=== PATIENT | female | born 1990 | race Caucasian/White ===

== ENCOUNTER 2023-01-04 18:26 | Emergency (ER) | payer MEDICAID, OTHER ==
[~2023-01-04] VITALS: Ht 160 cm; Wt 53.5 kg
--- NOTE | 2023-01-04 19:45 | NUR ---
BIBS INFECTED CYST/CELLULITIS, LEFT INFRA-ORBITAL AREA
--- NOTE | 2023-01-04 20:04 | NUR ---
IV STARTED 18G L AC
[2023-01-04 20:12] LABS: BASOPHILS % (AUTO) 0.3 % (0.0-2.0); EOSINOPHILS % (AUTO) 1.8 % (0.0-6.0); HEMATOCRIT 42 % (33-45); HEMOGLOBIN 13.8 g/dL (11.5-14.8); LYMPHOCYTES # (AUTO) 0.8 K/uL (0.8-4.8); LYMPHOCYTES % (AUTO) 9.3 % (20.0-44.0); MEAN CORPUSCULAR HGB CONC 33 g/dl (31.0-36.0); MEAN CORPUSCULAR VOLUME 92 fL (82-100); MONOCYTES # (AUTO) 0.6 K/uL (0.1-1.30); MONOCYTES % (AUTO) 7.2 % (2.0-12.0); NEUTROPHILS # (AUTO) 7.2 K/uL (1.8-8.9); NEUTROPHILS % (AUTO) 81.4 % (43.0-81.0); PLATELET COUNT (AUTO) 245 K/uL (150-450); RED BLOOD CELL COUNT(AUTO) 4.51 MIL/uL (4.0-5.2); WHITE BLOOD COUNT (AUTO) 8.9 K/uL (4.3-11.0)
[2023-01-04] MEDS ORDERED: IOHEXOL-300 100 ML VIAL IV ONE (20:17)
[2023-01-04] MEDS ORDERED: IV NS 0.9% 250 ML IV ONE (20:17)
--- NOTE | 2023-01-04 20:25 | NUR ---
PT TAKEN TO CT
[2023-01-04 20:27] LABS: CALCIUM, SERUM 9.4 mg/dL (8.5-10.1); CREATININE 0.8 mg/dL (0.6-1.3); POTASSIUM 4.2 mmol/L (3.5-5.1)
--- NOTE | 2023-01-04 20:35 | NUR ---
PT BACK FROM CT
[2023-01-04] MEDS ORDERED: CEFTRIAXONE 1GM BAG (ER ONLY) 1 GM/50 ML PIGGYBACK IV ONE (21:30)
[2023-01-04] MEDS ORDERED: KETOROLAC TROMETHAMINE INJ 30 MG/ML VIAL IV ONE (21:30)
[2023-01-04] MEDS ORDERED: CEFTRIAXONE 1GM BAG (ER ONLY) 50 ML IV ONE (21:36)
[2023-01-04] MEDS ORDERED: KETOROLAC TROMETHAMINE INJ 30 MG/ML VIAL ONE (21:36)
[2023-01-04] MEDS ORDERED: LIDOCAINE 1%-EPI 1:100,000 20 ML VIAL ONE (22:04)
--- NOTE | 2023-01-04 22:05 | NUR ---
NAVID BERNABE AT BED SIDE FOR I&D
[2023-01-04] MEDS ORDERED: IBUP-1955 PO (22:25)
[2023-01-04] MEDS ORDERED: CEPH500T PO (22:25)
[2023-01-04] MEDS ORDERED: SULF1TAB48 PO (22:25)
[2023-01-04] MEDS ORDERED: TDAP [DIPH/PERTUSSIS/TET] 0.5 ML VIAL IM ONE ×2 (22:26→22:30)
[2023-01-04] MEDS ORDERED: LIDOCAINE HCL/PF 1% 30 ML VIAL TP ONE (22:30)
[2023-01-04 22:58] LABS: ALBUMIN 4.3 g/dL (3.4-5.0)
--- NOTE | 2023-01-04 23:29 | NUR ---
Patient discharged to home in stable condition. Written and verbal after care instructions given. Patient verbalizes understanding of instruction.
[2023-01-04 23:30] VITALS: BP 120/72
[2023-01-04 23:56] LABS: BILIRUBIN,DIRECT 0.2 mg/dL (0.0-0.2); BILIRUBIN,TOTAL 0.8 mg/dL (0.2-1.0)
== END 2023-01-04 23:31 | disposition home or self-care (01) ==
LOC: ER 18:46
DX: L03.213 Periorbital cellulitis (principal); Z60.2 Problems related to living alone; Z79.899 Other long term (current) drug therapy
CPT/HCPCS: 99285; 96365; 10060; 70487; 96375; 90471; 90715; 85025; 80048; 87040 ×2; 80076; 36415; J3490 ×2; J1885; J7050; J0696; Q9967